=== PATIENT | female | born 1955 | race Caucasian/White ===

== ENCOUNTER → 2020-12-04 | Outpatient (CLI) | payer OTHER ==
[~2020-12-04] MED LIST: AMBIEN 5 MG TABL5 M1 PO; ASA81BEC PO; AUGMENTIN 875-1 EACH PO; CALCIUM 600 +1 EAC6 PO; CARVEDILOL25 MG PO; LOSARTAN POTAS100 MG PO; LOVASTATIN 20 M20 MG PO; NORVASC5 MG PO; OMEPRAZOLE 20 M20 M1 PO; WOMEN'S DAILY1 EAC5 PO; ZOFRAN4 MG PO; ZYRTEC 10 MG TA10 MG PO
== END ==
LOC: LAB 10:52
PROVIDERS: Student in an Organized Health Care Education/Training Program; ATTEND Pediatrics
DX: Z01.812 Encounter for preprocedural laboratory examination (principal); Z20.822 Contact with and (suspected) exposure to COVID-19

== ENCOUNTER → 2020-12-04 | Outpatient (CLI) | payer OTHER | LOC: CAT 09:59 | PROVIDERS: ATTEND Internal Medicine | DX: J84.10 Pulmonary fibrosis, unspecified (principal); R91.8 Other nonspecific abnormal finding of lung field; K76.0 Fatty (change of) liver, not elsewhere classified; J98.4 Other disorders of lung ==

== ENCOUNTER 2020-12-06 08:55 | Outpatient (CLI) | payer OTHER ==
[~2020-12-06] VITALS: Ht 154.9 cm; Wt 58.5 kg
[2020-12-06 09:42] VITALS: BP 144/59
--- NOTE | 2020-12-06 15:30 | EKG ---
[address] [address] ELECTROCARDIOGRAM REPORT Name: BRENDA NEWSOME Room #: 150-7 [facility]#: [id number] Admission: 12/06/20 Attend Phys: Malik Reed MD Discharge: Date of : 59 Report #: [id number] [facility] Test Date: 2020-12-06 Test Time: 09:33:02 Pat Name: BRENDA NEWSOME Department: Room: Gender: F Sheetrock Applicator: YADIEL : 1955 Requested By: Malik Reed Order Number: [id number] MD: Erick Chavez Measurements Intervals [place] Rate: 65 P: 44 ID: 172 QRS: -5 QRSD: 97 T: 30 QT: 408 QTc: 425 Interpretive Statements Sinus rhythm No previous ECG available for comparison Electronically Signed On 12-06-2020 15:30:12 CDT by Erick Chavez [email or web address] <ELECTRONICALLY SIGNED> By: Erick Chavez MD, [facility] 12/06/20 1530 0933 2 Erick Chavez MD, FACC /EPI
[2020-12-07 11:27] LABS: BF NUCLEATED CELLS 386 /mm3; BF RBC 5329 /mm3
[2020-12-07 11:29] LABS: CLARITY HAZY; COLOR LT PINK
[2020-12-07 14:00] LABS: BF NEUTROPHILS 75 %; SOURCE BRONCH WASH
[2020-12-07 14:02] LABS: BF MACROPHAGE 20 %
--- NOTE | 2020-12-11 15:07 | PATH ---
[facility] [address] [place] [address] PATHOLOGY RPT PROCEDURE Name: BRENDA NEWSOME Room #: DEP DENISE Sanchez.#: [id number] Admission: 12/06/20 Date of : 59 Discharge: 12/06/20 Report #: [id number] Path Case #: [id number] Note [facility] Accession Number: [id number] TESTS RESULT FLAG UNITS REF RANGE LAB Clinician Provided Cytology Information No. of containers..01 Other (Miscellaneous) Source: RUL BAL DIAGNOSIS: 02 RUL BAL NEGATIVE FOR MALIGNANT EPITHELIAL CELLS. NORMAL BRONCHIAL CELLS AND MACROPHAGES ARE PRESENT. PULMONARY MACROPHAGES (DUST CELLS) ARE PRESENT. Pathologist ICD10: 02 R91.8 Signed out by: 02 Dominique Fernández MD, Pathologist NPI- [id number] Performed by: John Paul Rod, Echocardiologist ([facility]) Gross description: 01 10ML, RED, 1TP /LCS 12/08/2020 0515 Local FLAG LEGEND: L-Low Normal,H-High Normal,LL-Alert Low,HH-Alert High <-Panic Low,>-Panic High,A-Abnormal,AA-Critical Abnormal Performed at: [address] [place] [address] Carlos Hall MD, [address] [address] Dominique Fernández MD, Specimen Comment: A courtesy copy of this report has been sent to [phone] Specimen Comment: [phone] Specimen Comment: Report sent to / DR MATTHEW Performed at: [address], [place], [place] [id number] MD Carlos Hall MD Phone: [phone]
--- NOTE | 2020-12-11 15:07 | PATH ---
[facility] [place] [address] PATHOLOGY RPT PROCEDURE Name: BRENDA NEWSOME Room #: DEP DENISE Sanchez.#: [id number] Admission: 12/06/20 Date of : 59 Discharge: 12/06/20 Report #: [id number] Path Case #: [id number] Note [facility] Accession Number: [id number] TESTS RESULT FLAG UNITS REF RANGE LAB Clinician Provided Cytology Information No. of containers..01 Other (Miscellaneous) Source: RUL BRUSHING DIAGNOSIS: 02 RUL BRUSHING NEGATIVE FOR MALIGNANT EPITHELIAL CELLS. NORMAL AND REACTIVE BRONCHIAL CELLS ARE PRESENT. RED BLOOD CELLS ARE PRESENT. Comment: Dr. Arabella Mohr and Dr. Samra Wagner have seen this case and concur with my diagnosis. Pathologist ICD10: 02 R91.8 Signed out by: Tamica Fernández MD, Pathologist NPI- [id number] Performed by: John Paul Rod, Salesperson [employer] ([facility]) Gross description: 01 17ML, COLORLESS, 1TP /LCS 12/08/2020 0513 Local FLAG LEGEND: L-Low Normal,H-High Normal,LL-Alert Low,HH-Alert High <-Panic Low,>-Panic High,A-Abnormal,AA-Critical Abnormal Performed at: [address] [place] [address] Carlos Hall MD, [address] [address] Dominique Fernández MD, Specimen Comment: A courtesy copy of this report has been sent to [phone] Specimen Comment: [phone] Specimen Comment: Report sent to / DR MATTHEW Performed at: [address], [place], [place] [id number] [address] [address] PATHOLOGY RPT PROCEDURE Name: MERCEDEZBRENDA Room #: DEP DENISE Stone#: [id number] Admission: 12/06/20 Date of : 59 Discharge: 12/06/20 Report #: [id number] Path Case #: [id number] RI Carlos Hall RI Phone: [phone]
--- NOTE | 2020-12-11 16:06 | PATH ---
[facility] [place] [address] [address] PATHOLOGY RPT PROCEDURE Name: BRENDA NEWSOME Room #: DEP Gertrudis M.R.#: [id number] Admission: 12/06/20 Date of : 59 Discharge: 12/06/20 Report #: [id number] Path Case #: [id number] [facility] Accession Number: [id number] . 01 Material submitted: . PART A: lung - RUL TBNA BIOPSY #2. Modifiers: right, upper PART B: lung - RUL TBNA BIOPSY SITE3. Modifiers: right, upper . 02 Diagnosis: A. Lung, right upper lobe, TBNA biopsy: - Moderate chronic inflammation along with fibrotic changes, as well as abundant macrophages, compatible with reactive process. - Negative for malignancy. - Reactive Pneumocyte hyperplasia present. . B. Lung, right upper lobe, TBNA biopsy site 3: - Moderate chronic inflammation along with fibrotic changes, as well as abundant macrophages, compatible with reactive process. - Negative for malignancy. - Reactive Pneumocyte hyperplasia present. . 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 02 Comment: Multiple properly controlled immunohistochemical stains are performed on blocks A2 and B2. The immunostains were performed to further characterize the cells. AE1/AE3, TTF-1, as well as Napsin are reactive within the type 2 Pneumocyte hyperplasia. Definitive malignant epithelial cells are not identified. CD68 is reactive within the macrophages in the intra-alveolar spaces. Immunohistochemical staining pattern is similar in both blocks A2 as well as B2. . Dr. Arabella Mohr and Dr. Samra Wagner have seen in store representative slides of this case and concur with my diagnosis. . 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 02 Electronically signed: . Dominique Fernández MD, Pathologist NPI- [id number] . 01 Gross description: . A. Received in formalin labeled "Brenda Newsome RUL TBNA biopsy forceps #2" are multiple fragments of hartman-white soft tissue measuring in aggregate 0.6 x 0.5 x 0.2 cm. The specimen is submitted entirely in cassettes A1-[place] [address] PATHOLOGY RPT PROCEDURE Name: MERCEDEZBRENDA Room #: DEP [facility] Bertha#: [id number] Admission: 12/06/20 Date of : 59 Discharge: 12/06/20 Report #: [id number] Path Case #: [id number] . B. Received in formalin labeled "Brenda Newsome, TBNA biopsy site 3 forceps" are multiple fragments of victoria-brown soft tissue measuring in aggregate 0.5 x 0.4 x 0.1 cm. The specimen is submitted entirely in cassettes B1-B2. ([facility] [place]; 12/09/2020) [facility] 12/09/2020 0948 Local . 02 Pathologist provided ICD-10: J98.4 . 02 CPT . 912748, 368964, [id number], [id number] Specimen Comment: A courtesy copy of this report has been sent to [phone] Specimen Comment: Report sent to Performed at: [address], [place] [id number] MD Carlos Hall MD Phone: [phone] Performed at: [address] [id number] MD Dominique Fernández MD Phone: [phone]
== END 2020-12-06 14:00 | disposition home or self-care (01) ==
LOC: PUL → TBA 08:55 → PUL 10:00
PROVIDERS: ATTEND Pediatrics
DX: J98.4 Other disorders of lung (principal); I10 Essential (primary) hypertension; E78.00 Pure hypercholesterolemia, unspecified; K21.9 Gastro-esophageal reflux disease without esophagitis; Z96.643 Presence of artificial hip joint, bilateral; Z98.51 Tubal ligation status; Z87.442 Personal history of urinary calculi; Z98.890 Other specified postprocedural states; Z79.899 Other long term (current) drug therapy; Z88.2 Allergy status to sulfonamides; Z88.8 Allergy status to other drugs, medicaments and biological substances
CPT/HCPCS: 62110; 62900; 70005